=== PATIENT | male | born 2000 ===

== ENCOUNTER 2021-08-01 10:54 | Emergency (ER) | payer MEDICAID, SELFPAY ==
[2021-08-01 11:23] VITALS: BP 139/87; PULSE 90; RESP 18; TEMP 36.1; O2SAT 99; BMI 34.0
[2021-08-01 11:46] LABS: IDNOW Serial# 9DD0AD1C; Strep A Nucleic Acid Negative (Negative)
[2021-08-01 11:47] LABS: COVID-19 Test Positive (Negative)
--- NOTE | 2021-08-01 12:47 | ED.URI ---
HPI - URI/Sore Throat General Chief Complaint: Upper Respiratory Symptoms Stated Complaint: sore throat headache chest pains Time Seen by Provider: 08/01/21 12:47 Source: patient Mode of arrival: ambulatory Limitations: no limitations History of Present Illness HPI Narrative: 20-year-old male presents to the ER for evaluation of sore throat, stuffy nose, dry cough, body aches for the last 2 or 3 days. He denies any fevers, difficulty breathing, shortness of breath. He does report when he takes a deep breath he feels like he is getting enough air. He is vaccinated for COVID with 2 Pfizer vaccines. He is not due for his booster yet. He has no known sick contacts. He works a [employer] factory. MD elicited complaint: cough Onset (ago): day(s) Consistency: intermittent Description of mucous: clear Able to tolerate fluids by mouth: Yes Exacerbating factors: exertion Relieving factors: nothing Associated symptoms: headache, nasal congestion, sore throat and cough Treatments prior to arrival: none Review of Systems Review of Systems: Constitutional: No Fever, No Chills ENT/Mouth: + sore throat, No Rhinorrhea, No Swallowing Difficulty Cardiovascular: No Chest Pain, No SOB Respiratory: + Cough, No Sputum, No Wheezing, No dyspnea Gastrointestinal: No Nausea, No Vomiting, No Diarrhea, No abdominal Pain Genitourinary: No Dysuria, No Urinary Frequency, No Hematuria Musculoskeletal: + joint pain, +Myalgias Skin: No Skin Lesions, No rash Neuro: + Weakness, No Numbness, No Dizziness, + Headache Heme/Lymph: No Lymphadenopathy PMFSH Past Medical History Medical History (Updated 08/01/21 @ 13:11 by SEGUNDO Husain) No known health problems Social History Social History Advance Directives: No Advance Directives Information Provided: No Physical Exam Vital Signs: Vital Signs: Last Vital Signs Temp 96.9 F 08/01/21 11:23 Pulse 90 08/01/21 11:23 Resp 18 08/01/21 11:23 BP 139/87 08/01/21 11:23 Pulse Ox 99 08/01/21 11:23 BMI result Body Mass Index 34.0 Appearance: Alert. Oriented X3. No acute distress. Eyes: Pupils equal, round and reactive to light. ENT: Pharynx normal. Neck: Normal inspection. Neck supple. CVS: Normal heart rate and rhythm. Pulses normal. Respiratory: No respiratory distress. Breath sounds normal. Skin: Skin warm and dry. Normal skin color. Normal skin turgor. No rashes. Extremities: Normal inspection, normal range of motion x4 Neuro: Oriented X 3. Grossly normal, nonfocal. Course Course Course Narrative: 20-year-old male presenting with URI symptoms. His vital signs are normal. His strep test is negative and his COVID test is positive. Patient was counseled. Likely he is a vaccinated and hopefully his symptoms will stay mild. He was counseled on strict warning precautions. Patient stable for discharge home for isolation and self-monitoring of symptoms. associate pastor used to discuss diagnosis and management as well as warning symptoms to return. MDM - URI/Sore Throat Lab Data Labs: Lab Results 08/01/21 08/01/21 Range/Units 11:28 11:28 COVID-19 ([facility]) Positive A (Negative) COVID-19 Clin Com See Note S. pyogenes GrpA MELIA Negative (Negative) Discharge Plan Discharge Clinical Impression: COVID-19 Patient Disposition: Home, Self-Care Instructions: Covid-19 Viral Syndrome and Novel Coronavirus (ED) Hey/Ath Additional Instructions: You were found to be COVID-19 POSITIVE today. Your exam and oxygen levels were normal. Rest. Drink plenty of fluids. Do not go out in public for the next 7-10 days. Take over the counter cold/flu medications as needed for your symptoms. Take Tylenol and/or Motrin as needed for fevers and body aches. Follow up with your doctor this week. If you shortness of breath worsens , if you develop difficulty breathing or any other concerning symptom come back to the ER for further evaluation. Se encontr? que usted es COVID-19 POSITIVO hoy. Ngozi an?lisis y niveles de ox?katie fueron normales. Descansar. Beber mucho l?quido. No salga en p?blico isaiah los pr?ximos 7-10 d?as. Sigue rajiv dieta blanda mientras no te sientas bharat. [place] medicamentos de venta cecilia para el resfriado o la gripe seg?n sea necesario para ngozi s?ntomas. [place] Tylenol y/o Motrin seg?n sea necesario para la fiebre y los cassidy corporales. Lindsay un seguimiento con cedeno m?dico esta semana. Stand Alone Forms: Work/School Release Print Language: Pashto
== END 2021-08-01 13:35 | disposition home or self-care (01) ==
PROVIDERS: Emergency Provider Emergency Medicine
DX: U07.1 COVID-19 (principal); J02.9 Acute pharyngitis, unspecified; R07.9 Chest pain, unspecified; M79.10 Myalgia, unspecified site; R51.9 Headache, unspecified; R50.9 Fever, unspecified; R05.9 Cough, unspecified
CPT/HCPCS: 87635; 87651; 99283

== ENCOUNTER 2024-01-05 10:56 | Emergency (ER) | payer OTHER, SELFPAY ==
--- NOTE | ~2024-01-05 | XR_ITS ---
EXAMINATION: XR HAND, RIGHT CLINICAL INFORMATION: Pain, injury, concern for retained foreign body. COMPARISON: None available. TECHNIQUE: PA, lateral, and oblique views of the right hand. FINDINGS: Laceration and swelling adjacent to the fifth metacarpal. No unexpected radiopaque foreign bodies. No acute fracture or subluxation. XR/XR hand RT min 3V IMPRESSION: Laceration and swelling adjacent to the fifth metacarpal. No unexpected radiopaque foreign bodies. No acute fracture or malalignment.
--- NOTE | 2024-01-05 10:58 | ED_ITS ---
HPI - Skin/Abscess/Foreign Bdy General Chief complaint: Wound/Laceration Stated complaint: hand laceration Time Seen by Provider: 01/05/24 11:03 Source: patient, family and training representative (patient declined an [facility] Data Migration Lead and requested to have his partner interpret) Mode of arrival: ambulatory Limitations: language barrier (patient declined [facility] training representative, prefers to use family training representative) History of Present Illness ED Provider: Sandee Gil PA-C HPI narrative: 23-year-old assigned male at presents for evaluation of right hand laceration from this morning. A glass door broke at his home and he cut the back of his right hand while trying to remove the item in the door, that broke the door. He is unsure of his tetanus vaccination status. MD complaint: laceration Onset (ago): hour(s) Tetanus up to date: unsure Location: R hand Severity scale (1-10): 2 Relieving factors: none Exacerbating factors: none Context: none Associated symptoms: denies other symptoms Treatments prior to arrival: none Related Data Previous Rx's ?Medication ?Instructions ?Recorded amoxicillin 875 mg-potassium 1 tab PO BID 10 days #20 tabs 01/05/24 clavulanate 125 mg tablet Allergies Allergy/AdvReac Type Severity Reaction Status Date / Time No Known Allergies Allergy Verified 01/05/24 11:00 Review of Systems 2 Constitutional: Constitutional: Reports no additional constitutional complaints, Denies chills, Denies fever(s) and Denies night sweats Eyes: Eyes: Reports no additional eye complaints, Denies blurry vision, Denies change in vision, Denies diplopia, Denies eye discharge, Denies loss of vision and Denies eye pain ENT: Denies dizziness Cardiovascular: Cardiovascular: Reports no additional cardiovascular complaints, Denies chest pain, Denies lightheadedness, Denies Loss of Consciousness and Denies dyspnea Respiratory: Respiratory: Reports no additional respiratory complaints and Denies dyspnea Gastrointestinal: Gastrointestinal: Reports no additional gastrointestinal complaints, Denies abdominal pain, Denies melena, Denies hematochezia, Denies change in bowel habits and Denies change in stool character Genitourinary: Genitourinary: Reports no additional male genitourinary complaints, Denies hematuria, Denies oliguria, Denies difficulty urinating, Denies dysuria, Denies urinary frequency, Denies urinary hesitancy, Denies urinary incontinence and Denies urinary urgency Musculoskeletal: Musculoskeletal: Reports no additional musculoskeletal complaints, Denies numbness and Denies tingling Comments: right hand pain Neurologic: Denies dizziness, Denies loss of vision, Denies numbness and Denies tingling Psychiatric: Psychiatric: Reports no additional psychiatric complaints Endocrine: Endocrine: Reports no additional endocrine complaints Hematologic/Lymphatic: Hematologic/Lymphatic: Reports no additional hematologic/lymphatic complaints Allergic/Immunologic: Allergic/Immunologic: Reports no additional allergic/immunologic complaints PMFSH Past Medical History Attestation statement: The following information was validated with the patient. Source: old records reviewed and nursing notes reviewed Medical History No known health problems Social History Social History Advance Directives: No Advance Directives Information Provided: Yes Physical Exam 2 Vital Signs: Vital Signs: Last Vital Signs Temp 98 F 01/05/24 10:59 Pulse 71 01/05/24 10:59 Resp 18 01/05/24 10:59 BP 123/76 01/05/24 10:59 Pulse Ox 99 01/05/24 10:59 O2 Del Method Room Air 01/05/24 10:59 BMI result Body Mass Index 35.9 Const: General: cooperative, no acute distress, alert and awake Nutritional Appearance: well nourished Orientation/consciousness: patient oriented x3 Limitations: no limitations HEENT: Head: Yes normal to inspection and Yes atraumatic Ears: hearing grossly normal bilaterally and external ears normal General nose exam: Normal external nose present, no nasal discharge noted and no epistaxis Face and sinus: Yes normal facial exam, No abrasion and No laceration Mouth: Normal oral and palatal mucosa present, no drooling and no muffled voice Eyes: General: appearance normal, both eyes and all related structures P eriorbital: periorbital findings normal Eyelids: Yes eyelids normal C onjunctivae: conjunctivae normal Pupils: Equal, round and reactive pupils present EOM: EOMs intact bilaterally Neck: Neck: Yes normal visual inspection, Yes full ROM and Yes no lymphadenopathy Chest: Chest palpation & inspection: normal inspection of the chest Resp: Effort & Inspection: normal respiratory effort and able to speak in complete sentences GI: Inspection: Yes normal to inspection Neuro: General: patient oriented x3 and moves all extremities Cranial nerves: Yes Equal, round and reactive pupils present Cognition (Neuro): n ormal cognition Motor exam (neuro): 5/5 motor strength present throughout Sensory Exam: Normal double simultaneous stimulation for sensation C oordination: [id number] test normal Extrem: General: Yes full ROM and Yes capillary refill normal Hand/finger images: 1. 3cm laceration, minimal gaping, no active bleeding 2. 0.25cm flap like laceration, no activ e bleeding Psych: Appearance: grossly normal Mental Status: mental status grossly normal Affect: normal affect Attitude: cooperative Thought process: N ormal thought process present Thought content: Normal thought content present Insight: Good insight present (Psych) Course Course Course Narrative: This is a Rapid Medical Examination (RME) performed by Haydee Gonsalez PA-C in triage. Full HPI, ROS, assessment and treatment plan per primary provider in the Main ED. 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 Reports 2cm linear lac to dorsum of right hand, proximal to 5th mcp. full ROM intact to right wrist and all digits to right hand. music coordinator strength intact. bleeding controlled. Plan: xrs, repair Medications Administered Discontinued Medications Generic Name Dose Route Start Last Admin Trade Name Freq PRN Reason Stop Dose Admin Diphtheria/Tetanus/Acell Pertussis 0.5 ml 01/05/24 11:06 01/05/24 11:12 Diphth,Pertus(Acell),Tet Adult 0.5 Ml Syringe IM 01/05/24 11:07 0.5 ml .ONCE ONE Administration Medical Decision Making Medical Decision Making [facility] Narrative: Patient is a 23 year old assigned male at with no reported medical history presenting to the emergency department today with right hand lacs. Patient's physical exam was as noted in the physical exam portion of this note. Patient's right hand x-ray showed no acute neil process or retained foreign body. I explained my physical exam findings as well as all test results to the patient and the patient's partner. I answered all questions asked by the patient and the patient's partner. Patient's lacerations were repaired, per procedure note, without incident. Patient's PMS was intact prior to and after laceration repairs. I stressed the importance of the patient having his sutures removed in 7-10 days. I stressed the importance of the patient NOT soaking the repaired areas. I stressed the importance of the patient performing daily wound checks and dressing changes. I stressed the importance of the patient taking his medication as prescribed. I stressed the importance of the patient following up with his primary care provider. I stressed the importance of the patient returning to the emergency department immediately if his symptoms were to worsen or if he were to develop any dizziness, shortness of breath, difficulty breathing, chest pain, blurry vision, loss of vision, nausea, vomiting, abdominal pain, fever, chills, back pain, or any other complaints. Patient and the patient's partner verbalized agreement and understanding with this treatment plan and discharge. Differential Diagnosis Differential Diagnoses: The differential diagnosis associated with the presentation includes Hand lacerations Admission/Observation Consideration of admission/observation: Escalation of care including admission/observation considered Patient would have been admitted to the hospital had his work up had any findings where hospital admission was appropriate and his clinical presentation warranted hospital admission. Independent Interpretation I performed an independent interpretation of an: Plain X-Ray Interpretation: My interpretation is in agreement with the radiologist's impression of this imaging study. - EXAMINATION: XR HAND, RIGHT CLINICAL INFORMATION: Pain, injury, concern for retained foreign body. COMPARISON: None available. TECHNIQUE: PA, lateral, and oblique views of the right hand. FINDINGS: Laceration and swelling adjacent to the fifth metacarpal. No unexpected radiopaque foreign bodies. No acute fracture or subluxation. XR/XR hand RT min 3V IMPRESSION: Laceration and swelling adjacent to the fifth metacarpal. No unexpected radiopaque foreign bodies. No acute fracture or malalignment. Dictated By: Chiquita Fletcher Signed By: Electronically signed by Chiquita Fletcher 01/05/24 1150 Radiology Impression Discussion of test interpretation with radiology: I have reviewed the radiologist's reading. Prescription Management I considered prescription management with: Antibiotic (patient prescribed a prophylactic antibiotic) Procedures Laceration Right hand: Site: hand Side (If applicable): right Size (cm): 3 Description: linear Depth: simple, single layer Local Anesthetic: lidocaine 1% Amount of anesthesia used (mL): 2 Pre-repair: irrigated extensively and deep structures intact Skin layer closed with: other (prolene) Size (cm): 6-0 Number of sutures: 7 Technique: simple, interrupted Right hand flap: Site: hand Side (If applicable): right Size (cm): 0.25 Description: flap Depth: simple, single layer Local Anesthetic: lidocaine 1% Amount of anesthesia used (mL): 0.25 Pre-repair: irrigated extensively and deep structures intact Skin layer closed with: other (prolene) Size (cm): 5-0 Number of sutures: 1 Technique: simple, interrupted Discharge Plan Discharge Clinical Impression: Laceration Patient Disposition: Home, Self-Care Instructions: Care For Your Stitches (DC), Laceration (DC) Additional Instructions: Have your stitches removed in 7-10 days. Do NOT soak the affected area. Follow up with your primary care provider. Return to the emergency department immediately if your symptoms worsen or if you develop any dizziness, shortness of breath, difficulty breathing, chest pain, blurry vision, loss of vision, nausea, vomiting, abdominal pain, fever, chills, back pain, or any other complaints. Prescriptions: New amoxicillin-pot clavulanate 875-125 mg tablet 1 tab PO BID 10 Days Qty: 20 0RF Referrals: [facility] Family Medicine [Provider Group] (Call to establish and follow up with a primary care provider. If you already have a primary care provider, please follow up with them.) [facility] [place] [Provider Group] [facility] [Provider Group] Stand Alone Forms: Work/School Release Interventions: ED Discharge Assessment Last Done: 01/05/24 13:31 Print Language: Czech
[2024-01-05 10:59] VITALS: BP 123/76; PULSE 71; RESP 18; TEMP 36.6; O2SAT 99; BMI 35.9
[2024-01-05] MEDS: Diphth,Pertus(ACell),Tet Adult 0.5 ML SYRINGE IM (11:12)
[2024-01-05 13:31] VITALS: BP 123/76; PULSE 71; RESP 18; TEMP 36.6; O2SAT 99
== END 2024-01-05 13:32 | disposition home or self-care (01) ==
PROVIDERS: Emergency Provider Emergency Medicine Emergency Medical Services
DX: S61.411A Laceration without foreign body of right hand, initial encounter (principal); W25.XXXA Contact with sharp glass, initial encounter; Y93.9 Activity, unspecified; Y92.9 Unspecified place or not applicable; Y99.9 Unspecified external cause status
CPT/HCPCS: 12002; 73130; 90471; 90715; 99282; 99284

== ENCOUNTER 2024-01-18 16:36 | Emergency (ER) | payer OTHER, SELFPAY ==
[2024-01-18 16:47] VITALS: BP 113/55; PULSE 71; RESP 16; TEMP 36.4; O2SAT 97; BMI 36.5
--- NOTE | 2024-01-18 16:47 | ED_ITS ---
HPI - Skin/Abscess/Foreign Bdy General Chief complaint: General Medical Stated complaint: Suture removal Time Seen by Provider: 01/18/24 16:55 Source: patient and rare/endangered species specialist (Citizen [place]) Mode of arrival: ambulatory Limitations: language barrier ([place]izen [place] speaking) History of Present Illness ED Provider: DEB CARMEN PA-C HPI narrative: 23-year-old Citizen [place]-speaking male with no significant past medical history presents to the ED today requesting suture removal. Patient was evaluated at at [facility] ED on 01/05/2024 after a glass door broke at his home, cutting the dorsal aspect of his right hand. Eight sutures were placed and his tetanus was updated at that time. He was also discharged home on Augmentin which she has completed. He denies any concerns at this time. affiliate manager utilized throughout visit to communicate with patient. Related Data Previous Rx's ?Medication ?Instructions ?Recorded amoxicillin 875 mg-potassium 1 tab PO BID 10 days #20 tabs 01/05/24 clavulanate 125 mg tablet Allergies Allergy/AdvReac Type Severity Reaction Status Date / Time No Known Allergies Allergy Verified 01/18/24 16:48 Review of Systems Review of Systems: Constitutional: No fever, chills, fatigue, night sweats, weight changes ENT/Mouth: No ear pain, hearing loss, nasal congestion, sinus pain, rhinorrhea, sore throat Eyes: No eye pain, swelling, redness, vision changes, discharge Cardio: No chest pain, palpitations, MORALES, orthopnea, peripheral edema Pulm: No SOB, cough, sputum, wheezing, dyspnea, hemoptysis GI: No nausea, vomiting, hematemesis, abdominal pain, diarrhea, constipation, hematochezia, melena : No irregular bleeding, dysuria, frequency, urgency, hesitancy, hematuria, flank pain, urinary flow changes, urinary incontinence or retention MSK: No back pain, neck pain, joint pain, myalgias Skin: No lesions, rashes, +sutures to right hand Neuro: No weakness, numbness, paresthesias, LOC, dizziness, headache Psych: No anxiety/panic, depression, SI/HI, AH/VH All other systems reviewed and are negative. [facility] Past Medical History Attestation statement: The following information was validated with the patient. Source: old records reviewed and nursing notes reviewed Medical History No known health problems Social History Social History Advance Directives: No Advance Directives Information Provided: No Do you have a plan to hurt others: No Plan Physical Exam Vital Signs: Vital Signs: Last Vital Signs Temp 97.6 F 01/18/24 16:47 Pulse 71 01/18/24 16:47 Resp 16 01/18/24 16:47 BP 113/55 L 01/18/24 16:47 Pulse Ox 97 01/18/24 16:47 O2 Del Method Room Air 01/18/24 16:47 BMI result Body Mass Index 36.5 Vital signs stable, afebrile Const: General: cooperative, healthy appearing, comfortable and no acute distress Orientation/consciousness: patient oriented x3 Limitations: no limitations HEENT: Head: Yes normocephalic and Yes atraumatic Eyes: General: appearance normal, both eyes and all related structures Neck: Neck: Yes normal visual inspection Resp: Effort & Inspection: normal respiratory effort and able to speak in complete sentences Skin: Other: + 8 sutures intact noted to dorsal aspec t of right hand just proximal to first digit. No surrounding erythema. No discharge or bleeding. No warmth, crepitus, tenderness to palpation. Full ROM intact to 1st digit. Neuro: Other: Sensation intact to light touch.? Neurovascular intact distally.? General: patient oriented x3 Course Course Course Narrative: Eight sutures removed successfully. Healing laceration noted. No gaping. No dehiscence. No surrounding erythema. No concern for infection. Educated patient on signs and symptoms of infection. Patient has remained stable throughout ED visit today. Discussed worrisome signs and symptoms and when to return to the ED. All questions answered at this time. Patient is agreeable with disposition and stable for discharge. Medical Decision Making Medical Decision Making MDM Narrative: 23-year-old Citizen [place]-speaking male with no significant past medical history presents to the ED today requesting suture removal. VSS. he is nontoxic appearing and in nad. on exam, 8 sutures intact noted to dorsal aspect of right hand just proximal to first digit. No surrounding erythema. No discharge or bleeding. No warmth, crepitus, tenderness to palpation. Full ROM intact to 1st digit. nv intact distally. Differential diagnosis includes suture, laceration, healing wound Plan for suture removal and disposition. Differential Diagnosis Differential Diagnoses: The differential diagnosis associated with the presentation includes As above Admission/Observation Not indicated External Record Review External record reviewed: Inpatient record Social Determinants Patient?s care significantly limited by Social Determinants of Health including: Other Social Determinant of Health Critical Care Time Critical Care Time Critical Care Time: No Discharge Plan Discharge Clinical Impression: Encounter for removal of sutures Patient Disposition: Home, Self-Care Instructions: Stitches Removal (ED) Additional Instructions: You were seen in the ED for suture removal today. Eight sutures are removed from your right hand. You may continue applying Neosporin and bacitracin to the area as needed. Return with new or worsening symptoms such as fever, redness or warmth around the area as these can all be signs of infection. Follow up with PCP as needed. In the case of an emergency call 911. Prescriptions: No Action amoxicillin-pot clavulanate 875-125 mg tablet 1 tab PO BID 10 Days Qty: 20 0RF Print Language: Citizen [place]
[2024-01-18 17:06] VITALS: BP 113/55; PULSE 71; RESP 18; TEMP 36.4; O2SAT 97
== END 2024-01-18 17:07 | disposition home or self-care (01) ==
PROVIDERS: Emergency Provider Emergency Medicine
DX: Z48.02 Encounter for removal of sutures (principal)
CPT/HCPCS: 99282